=== PATIENT | male | born 1925 | race Caucasian/White ===

== ENCOUNTER 2017-05-28 13:20 | Emergency (ER) | payer OTHER ==
[~2017-05-28] VITALS: Ht 177.8 cm; Wt 68.0 kg
[2017-05-28 13:29] VITALS: Ht 177.8 cm; Wt 68.0 kg
[2017-05-28] MEDS ORDERED: NITROGLYCERIN 2% 1 GM OINT PKT TD STA (13:41)
[2017-05-28] MEDS ORDERED: ASPIRIN 81 MG TAB PO STA (13:41)
[2017-05-28] MEDS ORDERED: NITROGLYCERIN (SL) 0.4 MG TAB SL PRN (14:00)
--- NOTE | 2017-05-28 14:11 | RADRPT ---
PROCEDURE: XR Chest. CLINICAL INDICATION: chest pain TECHNIQUE: Single portable view of the chest was obtained COMPARISON: None FINDINGS: There is mild cardiomegaly. There is mild pulmonary vascular congestion. There is a small right pleural effusion. The thoracic aorta is calcified. There is no pneumothorax. The bones and soft tissues are unremarkable. RPTAT: AA IMPRESSION: Mild cardiomegaly with pulmonary vascular congestion. Small right pleural effusion. .Frank Spivey MD, MD Date Time Electronically viewed and signed by .Frank Spivey MD, MD on 05/28/2017 14:10 .S/
[2017-05-28 15:40] VITALS: BP 137/74; PULSE 71; RESP 16
--- NOTE | 2017-05-28 19:09 | ERD ---
ER Documentation Chief Complaint Chief Complaint SENT BY PMD FOR CHEST PAIN ONSET 1 HR HPI Patient is an 89-year-old male with hypertension and diabetes who presents with chest pain. The patient was seen by Dr. Franks in the office today. He has chest pain and shortness of breath which started this morning but was worse at 12:30 PM. He has a history of coronary artery disease as well. Dr. Franks was concerned for possible acute coronary syndrome. ROS All systems reviewed and are negative except as per history of present illness. Allergies Allergies: Coded Allergies: No Known Allergy (Unverified , 05/28/17) PMhx/Soc History of Surgery: Yes (CABG, NOSE SX, HEMMOROIDECTOMY) Anesthesia Reaction: No Hx Neurological Disorder: No Hx Respiratory Disorders: No Hx Cardiac Disorders: Yes ([place], HTN, HIGH CHOLESTEROL) Hx Psychiatric Problems: No Hx Miscellaneous Medical Probl: No Hx Alcohol Use: No Hx Substance Use: No Hx Tobacco Use: No Smoking Status: Never smoker FmHx Family History: No coronary disease Physical Exam Vitals Vital Signs Date Time Temp Pulse Resp B/P Pulse Ox O2 Delivery O2 Flow Rate FiO2 05/28/17 15:40 71 16 137/74 97 Room Air 05/28/17 13:29 98.1 91 18 160/84 96 Physical Exam Const: No acute distress Head: Atraumatic Eyes: Normal Conjunctiva ENT: Normal External Ears, Nose and Mouth. Neck: Full range of motion..~ No meningismus. Resp: Clear to auscultation bilaterally Cardio: Regular rate and rhythm, no murmurs Abd: Soft, non tender, non distended. Normal bowel sounds Skin: No petechiae or rashes Back: No midline or flank tenderness Ext: No cyanosis, or edema Neur: Awake and alert Psych: Normal Mood and Affect Result Diagram: 05/28/17 1419 05/28/17 1419 Results 24 hrs Laboratory Tests Test 05/28/17 14:19 White Blood Count 4.410^3/ul Red Blood Count 3.8610^6/ul Hemoglobin 11.3g/dl Hematocrit 35.5% Mean Corpuscular Volume 92.0fl Mean Corpuscular Hemoglobin 29.3pg Mean Corpuscular Hemoglobin Concent 31.8g/dl Red Cell Distribution Width 15.6% Platelet Count 04109^3/UL Mean Platelet Volume 10.2fl Neutrophils % 75.6% Lymphocytes % 13.0% Monocytes % 9.1% Eosinophils % 1.6% Basophils % 0.2% Nucleated Red Blood Cells % 0.0/100WBC Neutrophils # 3.310^3/ul Lymphocytes # 0.610^3/ul Monocytes # 0.410^3/ul Eosinophils # 0.110^3/ul Basophils # 0.010^3/ul Nucleated Red Blood Cells # 0.010^3/ul Sodium Level 142mmol/L Potassium Level 4.1mmol/L Chloride Level 112mmol/L Carbon Dioxide Level 17mmol/L Anion Gap 17 Blood Urea Nitrogen 30mg/dl Creatinine 2.39mg/dl Glucose Level 141mg/dl Calcium Level 8.6mg/dl Troponin I 0.054ng/ml Current Medications Medications (Trade) Dose Ordered Sig/Tammy Route PRN Reason Start Time Stop Time Status Last Admin Dose Admin Aspirin (Aspirin) 162 mg ONCE STAT PO 05/28/17 13:41 05/28/17 13:42 DC 05/28/17 14:17 Nitroglycerin (Nitroglycerin 2% Oint) 1 inch ONCE STAT TD 05/28/17 13:41 05/28/17 13:42 DC 05/28/17 14:20 Nitroglycerin (Nitroglycerin (Sl Tab) 0.4 Mg) 1 tab Q5M UP TO 3 DOSES PRN SL CHEST PAIN 05/28/17 14:00 Procedures/MDM EKG read by me: Rate/Rhythm: Regular rate and rhythm at a normal rate Intervals: Normal Impression: No evidence of ischemia or arrhythmia Chest x-ray shows no pneumonia or pneumothorax per radiology. Patient is an 89-year-old male with coronary disease, hypertension, and diabetes who presents with chest pain. His laboratory studies show anemia with a hemoglobin 11.3 and elevated BUN and creatinine of 30 and 2.39. Initial troponin was 0.054 which is within normal limits but not negative. I wanted to admit him to the hospital. He has [employer] insurance and will need to be transferred to the son said "there is no way on doing that on taking him home". The patient was instructed that he would be signing out AGAINST MEDICAL ADVICE and that there was a risk for [place] and even but the family is insistent that they want to take him home. I am concerned for possible acute coronary syndrome. I doubt pneumonia, pneumothorax, pulmonary embolism, or aortic dissection. The patient could return for any worsening symptoms. Departure Diagnosis: Primary Impression: Chest pain Chest pain type: unspecified Qualified Code: R07.9 - Chest pain, unspecified type Additional Impressions: Renal failure Renal failure chronicity: unspecified chronicity Qualified Code: N19 - Renal failure, unspecified chronicity Anemia Anemia type: unspecified type Qualified Code: D64.9 - Anemia, unspecified type Condition: YOKO Padilla MD May 28, 2017 19:12
[2017-05-28] MEDS ORDERED: LIDOCAINE/MYLANTA 40 ML BTL ONE (22:03)
[2017-05-28] MEDS ORDERED: morphine 4 MG/ML VIAL ONE (22:03)
[2017-05-28] MEDS ORDERED: ONDANSETRON 4 MG INJ ONE (22:03)
== END 2017-05-28 19:06 | disposition home or self-care (01) ==
LOC: E/R 13:20
DX: D64.9 Anemia, unspecified (principal); N19 Unspecified kidney failure; I25.10 Atherosclerotic heart disease of native coronary artery without angina pectoris; I10 Essential (primary) hypertension; E11.9 Type 2 diabetes mellitus without complications; Z98.61 Coronary angioplasty status
CPT/HCPCS: 36415; 71010; 80048; 84484; 85025; 93005; J2270; J2405; Z7502; Z7610